=== PATIENT | male | born 1970 | race Caucasian/White ===

== ENCOUNTER 2017-04-01 10:34 | Inpatient (IN) | payer SELFPAY ==
[2017-04-01] VITALS (7 sets, daily range): BP systolic 100–146; BP diastolic 58–72; PULSE 55–81; RESP 16–20; TEMP 97.7–99; O2SAT 99–100
[~2017-04-01] VITALS: Ht 180.3 cm; Wt 76.6 kg
[2017-04-01] MEDS ORDERED: SODIUM CHLOR 0.9% 1000 ML INJ 1,000 ML IV ONE ×2 (10:54→11:24)
[2017-04-01] MEDS ORDERED: INSULIN HUMAN REGULAR 1,000 UNITS/10 ML VIAL IV PUSH ONE (11:00)
[2017-04-01] MEDS ORDERED: SODIUM CHLORIDE 0.9% FLUSH 10 ML FLUSH IVF PRN (11:00)
--- NOTE | 2017-04-01 11:03 | PD ---
HPI Chief Complaint: Syncope/Near-Syncope Time Seen by Provider: 10:54 Travel History International Travel<30 days: No Contact w/Intl Traveler<30days: No Traveled to known affect area: No History of Present Illness HPI This is a 46-year-old male who presents today with complaints of passing out yesterday. The patient states he was working in the hot heat when he had an episode where he passed out. He states he was weak and dizzy for roughly an hour and a half after passing out. He reports he had associated nausea and vomiting 2 episodes. He reports cramping in his lower extremities. The patient also has a history of diabetes and states that he has not been taking medication because he's posted controlling his diabetes with diet. He denies any fevers, chills. He did state that he felt warm yesterday when he passed out. He also reported a headache yesterday but denies one today. He reports mild dizziness still. He reports normal urine output and reports drinking a lot of water secondary to the heat. There are no other complaints at the time my examination. [facility] Past Medical History Diabetes: Yes Patient Takes Glucophage: No Medical other: Yes (DM) Tetanus Vaccination: > 5 Years Influenza Vaccination: No ?: Past Surgical History Surgical History: No Previous Surgery Social History Alcohol Use: No (PT DENIES ) Tobacco Use: No (PT DENIES ) Substance Use: No (PT DENIES ) Allergies-Medications (Allergen,Severity, Reaction): Coded Allergies: No Known Allergies (Unverified , 04/01/17) Reported Meds & Prescriptions Reported Meds & Active Scripts Active No Active Prescriptions or Reported Medications Review of Systems Except as stated in HPI: all other systems reviewed are Neg General / Constitutional: No: Fever, Chills Eyes: No: Diploplia, Blurred Vision HENT: Positive: Headaches (yesterday), Lightheadedness, No: Vertigo Cardiovascular: No: Chest Pain or Discomfort, Palpitations Respiratory: No: Cough, Shortness of Breath Gastrointestinal: Positive: Nausea, Vomiting (2), No: Diarrhea, Abdominal Pain Genitourinary: No: Dysuria, Decreased Urinary Output Musculoskeletal: Positive: Cramping, No: Weakness, Pain Neurologic: Positive: Dizziness, Syncope (yesterday), Headache (yesterday none today), No: Weakness, Incontinence, Seizures Physical Exam Narrative GENERAL: Well-developed well-nourished male in no acute respiratory distress. SKIN: Focused skin assessment warm/dry. HEAD: Atraumatic. Normocephalic. EYES:No scleral icterus. No injection or drainage. ENT: No nasal bleeding or discharge. Mucous membranes pink and moist. NECK: Trachea midline. Supple. CARDIOVASCULAR: Regular rate and rhythm. No murmur appreciated. RESPIRATORY: No accessory muscle use. Clear to auscultation. Breath sounds equal bilaterally. GASTROINTESTINAL: Abdomen soft, non-tender, nondistended. MUSCULOSKELETAL: No obvious deformities. No clubbing. No cyanosis. No edema. NEUROLOGICAL: Awake and alert. No obvious cranial nerve deficits. Motor grossly within normal limits. Normal speech. Data Data Last Documented VS Vital Signs Date Time Temp Pulse Resp B/P Pulse Ox O2 Delivery O2 Flow Rate FiO2 04/01/17 12:29 97.8 81 16 111/67 99 Room Air Orders Electrocardiogram (04/01/17 ) Complete Blood Count With Diff (04/01/17 10:54) Comprehensive Metabolic Panel (04/01/17 10:54) Magnesium (Mg) (04/01/17 10:54) Beta Hydroxybutyrate (Acetone) (04/01/17 10:54) Urinalysis - C+S If Indicated (04/01/17 10:54) Blood Glucose (04/01/17 10:54) Ecg Monitoring (04/01/17 10:54) Iv Access Insert/Monitor (04/01/17 10:54) Oximetry (04/01/17 10:54) NPO (04/01/17 10:54) Sodium Chlor 0.9% 1000 Ml Inj (Ns 1000 M (04/01/17 10:54) Sodium Chlor 0.9% 1000 Ml Inj (Ns 1000 M (04/01/17 11:24) Sodium Chloride 0.9% Flush (Ns Flush) (04/01/17 11:00) Insulin Human Regular Inj (Novolin R Inj (04/01/17 11:00) Diet 1800 Ada Cons Carb (04/01/17 Lunch) Vital Signs (Adult) ARTURO.Q4H (04/01/17 13:40) Hemoglobin (Hgb) A1c (04/01/17 13:40) Consult Roof Tiler (04/01/17 ) Sodium Chlor 0.9% 1000 Ml Inj (Ns 1000 M (04/01/17 13:45) Basic Metabolic Panel (Bmp) (04/02/17 06:00) Blood Glucose Goal (Criteria) (04/01/17 13:40) Hypoglycemia 70 Mg/Dl Or < (04/01/17 13:40) Notify Dr: Other (04/01/17 13:40) Dextrose 50% In Margo (Vial) Inj (D50w (Vi (04/01/17 13:45) Glucagon Inj (Glucagon Inj) (04/01/17 13:45) Insulin Aspart Supplemtl Scale (Novolog (04/01/17 16:00) Ondansetron Inj (Zofran Inj) (04/01/17 13:45) Admit Order (Ed Use Only) (04/01/17 13:32) Labs Laboratory Tests Test 04/01/17 04/01/17 11:00 11:12 White Blood Count 10.1 TH/MM3 Red Blood Count 4.79 MIL/MM3 Hemoglobin 14.8 GM/DL Hematocrit 43.6 % Mean Corpuscular Volume 90.9 FL Mean Corpuscular Hemoglobin 30.9 PG Mean Corpuscular Hemoglobin 34.0 % Concent Red Cell Distribution Width 12.8 % Platelet Count 248 TH/MM3 Mean Platelet Volume 7.5 FL Neutrophils (%) (Auto) 72.1 % Lymphocytes (%) (Auto) 20.0 % Monocytes (%) (Auto) 6.4 % Eosinophils (%) (Auto) 1.1 % Basophils (%) (Auto) 0.4 % Neutrophils # (Auto) 7.3 TH/MM3 Lymphocytes # (Auto) 2.0 TH/MM3 Monocytes # (Auto) 0.6 TH/MM3 Eosinophils # (Auto) 0.1 TH/MM3 Basophils # (Auto) 0.0 TH/MM3 CBC Comment DIFF FINAL Differential Comment Sodium Level 128 MEQ/L Potassium Level 3.8 MEQ/L Chloride Level 91 MEQ/L Carbon Dioxide Level 28.7 MEQ/L Anion Gap 8 MEQ/L Blood Urea Nitrogen 33 MG/DL Creatinine 1.59 MG/DL Estimat Glomerular Filtration 48 ML/MIN Rate Random Glucose 452 MG/DL Calcium Level 9.0 MG/DL Magnesium Level 2.2 MG/DL Total Bilirubin 0.9 MG/DL Aspartate Amino Transf 11 U/L (AST/SGOT) Alanine Aminotransferase 26 U/L (ALT/SGPT) Alkaline Phosphatase 122 U/L Total Protein 7.6 GM/DL Albumin 4.3 GM/DL B-Hydroxybutyrate 0.11 MMOL/L Urine Color YELLOW Urine Turbidity CLEAR Urine pH 5.5 Urine Specific [place] 1.032 Urine Protein TRACE mg/dL Urine Glucose (UA) 1000 mg/dL Urine Ketones NEG mg/dL Urine Occult Blood NEG Urine Nitrite NEG Urine Bilirubin NEG Urine Urobilinogen LESS THAN 2.0 MG/DL Urine Leukocyte Esterase NEG Urine RBC LESS THAN 1 /hpf Urine WBC 1 /hpf Urine Hyaline Casts 11 /lpf Urine Mucus FEW /lpf Microscopic Urinalysis Comment CULT NOT INDICATED MDM Medical Decision Making Medical Screen Exam Complete: Yes Emergency Medical Condition: Yes Differential Diagnosis DKA versus dehydration versus he takes testosterone versus metabolic arrangement Narrative Course 46-year-old male who presents after having a syncopal episode yesterday. The patient's was out working in the heat when he got lightheaded and passed out. He reports feeling dizzy and symptomatic for 1.5 hours after the episode. Patient also has a history of diabetes that he states is diet controlled. His blood sugar was noted to be 452 here today. He states he has not ever taken medications for his diabetes. He's been given 2 L of IVD fluid. He is also been given 8 units of Regular Insulin. His blood sugar after the fluids and insolent is 92. The patient's also noted to have a sodium of 128. His kidney function shows acute kidney injury as well. Given all of this, he will be admitted to the hospital for blood sugar control, I dehydration, sodium replacement. The case was discussed with , [facility] hospitalist who is agreed to the admission. Diagnosis Primary Impression: Uncontrolled diabetes mellitus Additional Impressions: Acute kidney injury Hyponatremia Scripts No Active Prescriptions or Reported Meds Luis Alberto Orosco MD Apr 01, 2017 11:03
[2017-04-01 11:18] LABS: AUTOMATED NEUTROPHIL # 7.3 TH/MM3 (1.8-7.7); BASOPHIL % 0.4 % (0.0-2.0); EOSINOPHIL # 0.1 TH/MM3 (0-0.4); EOSINOPHIL % 1.1 % (0.0-4.0); HEMATOCRIT 43.6 % (39.0-51.0); HEMO FLAGS DIFF FINAL; MEAN CELL VOLUME 90.9 FL (80.0-100.0); MEAN CORPUSCULAR HEMOGLOBIN 30.9 PG (27.0-34.0); MONO % 6.4 % (0.0-8.0); NEUT % 72.1 % (16.0-70.0); PLATELET COUNT 248 TH/MM3 (150-450); RED BLOOD COUNT 4.79 MIL/MM3 (4.50-5.90); RED CELL DISTRIBUTION WIDTH 12.8 % (11.6-17.2); WHITE BLOOD COUNT 10.1 TH/MM3 (4.0-11.0)
[2017-04-01 11:32] LABS: BLOOD, URINE NEG (NEG); GLUCOSE,URINE 1000 mg/dL (NEG); HYALINE CAST, URINE 11 /lpf (RARE); KETONE, URINE NEG (NEG); MUCUS URINE FEW /lpf (OCC); NITRITE,URINE NEG (NEG); PH, URINE 5.5 (5.0-8.5); URINE COLOR YELLOW (YELLW/STRAW)
[2017-04-01 11:33] LABS: COMMENT (UR) CULT NOT INDICATED; CULTURE IF INDICATED CULT NOT INDICATED
[2017-04-01 11:41] LABS: ALKALINE PHOSPHATASE 122 U/L (45-117); ALT (GPT) 26 U/L (12-78); ANION GAP 8 MEQ/L (5-15); AST (GOT) 11 U/L (15-37); BETA-HYDROXYBUTYRATE 0.11 MMOL/L (0.00-0.39); BICARBONATE 28.7 MEQ/L (21.0-32.0); BLOOD UREA NITROGEN 33 MG/DL (7-18); CHLORIDE 91 MEQ/L (98-107); GLOMERULAR FILTRATION RATE 48 ML/MIN (>89); MAGNESIUM 2.2 MG/DL (1.5-2.5); POTASSIUM 3.8 MEQ/L (3.5-5.1); SODIUM (NA) 128 MEQ/L (136-145); TOTAL BILIRUBIN ADULT 0.9 MG/DL (0.2-1.0)
--- NOTE | 2017-04-01 12:37 | EKG ---
Date Performed: 04/01/2017 Time Performed: 10:49:42 PTAGE: 46 years EKG: Sinus rhythm NORMAL ECG NO PREVIOUS TRACING DOCTOR: Tesfaye Viera Interpretating Date/Time 04/01/2017 12:34:55
[2017-04-01] MEDS ORDERED: ONDANSETRON HCL 4 MG/2 ML VIAL IV PUSH PRN (13:45)
[2017-04-01] MEDS ORDERED: GLUCAGON 1 MG/ML VIAL OTHER PRN (13:45)
[2017-04-01] MEDS ORDERED: DEXTROSE 50% IN WATER 50 ML VIAL(D50) IV PRN (13:45)
--- NOTE | 2017-04-01 13:51 | HHI.HP ---
[facility] Physician No Primary Care Physician Admission Diagnosis uncontrolled diabetes mellitus. Diagnoses: (1) Uncontrolled diabetes mellitus Diagnosis: Principal Chief Complaint: dizziness Travel History International Travel<30 Days: No Contact w/Intl Traveler <30 Da: No Traveled to Known Affected Are: No History of Present Illness patient is a 46 y/o male with history of diabetes- not on any medications, presented to ER after he passed out earlier. he says that he was working outside when he felt dizzy and then passed out.he denies any chest pain, sob, nausea, emesis. he says that he was diagnosed with diabetes six years ago but it 's diet-controlled. Review of Systems Constitutional: COMPLAINS OF: Dizziness, DENIES: Fever, Weight loss, Chills, Night Sweats Eyes: DENIES: Blurred vision, Diplopia, Vision loss, Double Vision Ears, nose, mouth, throat: DENIES: Tinnitus, Vertigo, Throat pain, Epistaxis Respiratory: DENIES: Apneas, Cough, Snoring, Wheezing, Hemoptysis, Sputum production, Shortness of breath Cardiovascular: DENIES: Chest pain, Palpitations, Syncope, Dyspnea on Exertion , PND, Lower Extremity Edema, Orthopnea, Claudication Gastrointestinal: DENIES: Abdominal pain, Black stools, Bloody stools, Constipation, Diarrhea, Nausea, Vomiting, Difficulty Swallowing, Anorexia Genitourinary: DENIES: Urinary frequency, Urgency, Hematuria, Dysuria Musculoskeletal: DENIES: Joint pain, Muscle aches, Stiffness, Joint Swelling Integumentary: DENIES: Rash Neurologic: DENIES: Abnormal gait, Headache, Localized weakness, Paresthesias, Seizures, Speech Problems, Tremor, Poor Balance Psychiatric: DENIES: Anxiety, Confusion, Mood changes, Depression, Hallucinations, Agitation, Suicidal Ideation, Homicidal Ideation, Delusions Past Family Social History Past Medical History diabetes mellitus. Past Surgical History none Reported Medications none Allergies: Coded Allergies: No Known Allergies (Unverified , 04/01/17) Active Ordered Medications Current Medications Sodium Chloride 1,000 ml @ 2,000 mls/hr Q30M ONCE IV Last administered on 04/01 11:05; Start 04/01/17 at 10:54; Stop 04/01/17 at 11:23; Status DC Sodium Chloride (NS 1000 ml Inj) 1,000 ml @ 2,000 mls/hr Q30M ONCE IV Last administered on 04/01/17 11:08; Start 04/01/17 at 11:24; Stop 04/01/17 at 11:53 ; Status DC Sodium Chloride (NS Flush) 2 ml UNSCH PRN IVF FLUSH AFTER USING IV ACCESS; Start 04/01/17 at 11:00 Insulin Human Regular (NovoLIN R INJ) 8 units ONCE ONCE IV PUSH Last administered on 04/01/17 11:07; Start 04/01/17 at 11:00; Stop 04/01/17 at 11:01 ; Status DC Social History no smoking or drinking. Physical Exam Vital Signs Vital Signs Date Time Temp Pulse Resp B/P Pulse Ox O2 Delivery O2 Flow Rate FiO2 04/01/17 12:29 97.8 81 16 111/67 99 Room Air 04/01/17 11:00 68 18 99 Room Air 04/01/17 11:00 18 99 Room Air 04/01/17 10:38 99.0 76 18 146/72 100 Room Air Physical Exam GENERAL: This is a well-nourished, well-developed patient, in no apparent distress. SKIN: No rashes, ecchymoses or lesions. Cool and dry. HEAD: Atraumatic. Normocephalic. No temporal or scalp tenderness. EYES: Pupils equal round and reactive. Extraocular motions intact. No scleral icterus. No injection or drainage. ENT: Nose without bleeding, purulent drainage or septal hematoma. Throat without erythema, tonsillar hypertrophy or exudate. Uvula midline. Airway patent. NECK: Trachea midline. No JVD or lymphadenopathy. Supple, nontender, no meningeal signs. CARDIOVASCULAR: Regular rate and rhythm without murmurs, gallops, or rubs. RESPIRATORY: Clear to auscultation. Breath sounds equal bilaterally. No wheezes , rales, or rhonchi. GASTROINTESTINAL: Abdomen soft, non-tender, nondistended. No hepato-splenomegaly , or palpable masses. No guarding. MUSCULOSKELETAL: Extremities without clubbing, cyanosis, or edema. No joint tenderness, effusion, or edema noted. No calf tenderness. Negative Homans sign bilaterally. NEUROLOGICAL: Awake and alert. Cranial nerves II through XII intact. Motor and sensory grossly within normal limits. Five out of 5 muscle strength in all muscle groups. Normal speech. Laboratory Laboratory Tests Test 04/01/17 04/01/17 11:00 11:12 White Blood Count 10.1 Red Blood Count 4.79 Hemoglobin 14.8 Hematocrit 43.6 Mean Corpuscular Volume 90.9 Mean Corpuscular Hemoglobin 30.9 Mean Corpuscular Hemoglobin 34.0 Concent Red Cell Distribution Width 12.8 Platelet Count 248 Mean Platelet Volume 7.5 Neutrophils (%) (Auto) 72.1 Lymphocytes (%) (Auto) 20.0 Monocytes (%) (Auto) 6.4 Eosinophils (%) (Auto) 1.1 Basophils (%) (Auto) 0.4 Neutrophils # (Auto) 7.3 Lymphocytes # (Auto) 2.0 Monocytes # (Auto) 0.6 Eosinophils # (Auto) 0.1 Basophils # (Auto) 0.0 CBC Comment DIFF FINAL Differential Comment Sodium Level 128 Potassium Level 3.8 Chloride Level 91 Carbon Dioxide Level 28.7 Anion Gap 8 Blood Urea Nitrogen 33 Creatinine 1.59 Estimat Glomerular Filtration 48 Rate Random Glucose 452 Calcium Level 9.0 Magnesium Level 2.2 Total Bilirubin 0.9 Aspartate Amino Transf 11 (AST/SGOT) Alanine Aminotransferase 26 (ALT/SGPT) Alkaline Phosphatase 122 Total Protein 7.6 Albumin 4.3 B-Hydroxybutyrate 0.11 Urine Color YELLOW Urine Turbidity CLEAR Urine pH 5.5 Urine Specific [place] 1.032 Urine Protein TRACE Urine Glucose (UA) 1000 Urine Ketones NEG Urine Occult Blood NEG Urine Nitrite NEG Urine Bilirubin NEG Urine Urobilinogen LESS THAN 2.0 Urine Leukocyte Esterase NEG Urine RBC LESS THAN 1 Urine WBC 1 Urine Hyaline Casts 11 Urine Mucus FEW Microscopic Urinalysis Comment CULT NOT INDICATED Result Diagram: 04/01/17 1100 04/01/17 1100 Imaging EKG; NSR with no acute ST-T changes. Assessment and Plan Assessment and Plan A/P - uncontrolled diabetes mellitus start on accu-check with SSI- check A1c and consult team lead- -acute kidney injury/ dehydration continue with IV fluid and monitor; BMP in am -hyponatremia due to hyperglycemia- continue IV fluid- BMP in am Discussed Condition With ER physician and the patient. Physician Certification 2 Midnight Certification Type: Admission for Inpatient Services Order for Inpatient Services The services are ordered in accordance with Medicare regulations or non- Medicare payer requirements, as applicable. In the case of services not specified as inpatient-only, they are appropriately provided as inpatient services in accordance with the 2-midnight benchmark. Estimated LOS (days): 2 days is the estimated time the patient will need to remain in the hospital, assuming treatment plan goals are met and no additional complications. Post-Hospital Plan: Home Problem Qualifiers (1) Uncontrolled diabetes mellitus: Ana Flanagan MD Apr 01, 2017 13:51
[2017-04-01] MEDS: SODIUM CHLOR 0.9% 1000 ML INJ 1,000 ML IV SCH ×2 (14:03→21:45)
[2017-04-01] MEDS: INSULIN ASPART SUPPLEMENTAL SCALE SQ SCH ×2 (15:55→21:00)
[2017-04-02 01:01] VITALS: BP 90/52; PULSE 58; RESP 20; TEMP 97.9; O2SAT 99
[2017-04-02 05:45] VITALS: BP 94/48; PULSE 61; RESP 20; TEMP 98.1; O2SAT 99
[2017-04-02] MEDS: SODIUM CHLOR 0.9% 1000 ML INJ 1,000 ML IV SCH ×2 (05:45→09:05)
[2017-04-02] MEDS: INSULIN ASPART SUPPLEMENTAL SCALE SQ SCH ×3 (06:16→15:47)
[2017-04-02 08:28] VITALS: BP 95/51; PULSE 59; RESP 18; TEMP 98.1; O2SAT 98
[2017-04-02 09:28] LABS: BICARBONATE 27.2 MEQ/L (21.0-32.0)
--- NOTE | 2017-04-02 11:32 | HHI.PR ---
Subjective Remarks resting comfortably with no distress. blood sugar overall improved. d/w the RN and no acute issues over night. Objective Vitals Vital Signs Date Time Temp Pulse Resp B/P Pulse Ox O2 Delivery O2 Flow Rate FiO2 04/02/17 08:28 98.1 59 18 95/51 98 04/02/17 05:45 98.1 61 20 94/48 99 04/02/17 01:01 97.9 58 20 90/52 99 04/01/17 21:04 98.0 55 20 102/59 99 04/01/17 16:34 98.3 60 18 105/59 100 04/01/17 15:55 97.8 76 16 100/59 99 04/01/17 14:03 97.7 59 16 100/58 99 Room Air 04/01/17 12:29 97.8 81 16 111/67 99 Room Air I/O 04/01/17 04/01/17 04/01/17 04/02/17 04/02/17 04/02/17 06:59 14:59 22:59 06:59 14:59 22:59 Intake Total 1022 ml Balance 1022 ml Intake IV Total 1022 ml # Voids 1 Result Diagram: 04/01/17 1100 04/02/17 0731 Objective Remarks GENERAL: This is a well-nourished, well-developed patient, in no apparent distress. CARDIOVASCULAR: Regular rate and regular rhythm without murmurs, gallops, or rubs. RESPIRATORY: Clear to auscultation. Breath sounds equal bilaterally. No wheezes , rales, or rhonchi. GASTROINTESTINAL: Abdomen soft, non-tender, nondistended. Normal, active bowel sounds MUSCULOSKELETAL: Extremities without clubbing, cyanosis, or edema. NEURO: Alert & Oriented x4 to person, place, time, situation. Moves all ext x4 Medications and IVs Current Medications Sodium Chloride 1,000 ml @ 2,000 mls/hr Q30M ONCE IV Last administered on 04/01 11:05; Start 04/01/17 at 10:54; Stop 04/01/17 at 11:23; Status DC Sodium Chloride (NS 1000 ml Inj) 1,000 ml @ 2,000 mls/hr Q30M ONCE IV Last administered on 04/01/17 11:08; Start 04/01/17 at 11:24; Stop 04/01/17 at 11:53 ; Status DC Sodium Chloride (NS Flush) 2 ml UNSCH PRN IVF FLUSH AFTER USING IV ACCESS; Start 04/01/17 at 11:00 Insulin Human Regular 8 units 8 units ONCE ONCE IV PUSH Last administered on 11:07; Start 04/01/17 at 11:00; Stop 04/01/17 at 11:01; Status DC Sodium Chloride (NS 1000 ml Inj) 1,000 ml @ 125 mls/hr Q8H IV Last administered on 04/02/17 09:05; Start 04/01/17 at 13:45 Dextrose (D50w (Vial) Inj) 50 ml UNSCH PRN IV HYPOGLYCEMIA-SEE COMMENTS; Start 04/01/17 at 13:45 Glucagon (Glucagon Inj) 1 mg UNSCH PRN OTHER HYPOGLYCEMIA-SEE COMMENTS; Start 04/01/17 at 13:45 Insulin Aspart (NovoLOG SUPPLEMENTAL SCALE) 1 ACHS SLIDING SCALE SQ Last administered on 04/02/17 06:16; Start 04/01/17 at 16:00 Ondansetron HCl (Zofran Inj) 4 mg Q8HR PRN IV PUSH NAUSEA; Start 04/01/17 at 13 :45 A/P Assessment and Plan A/P - uncontrolled diabetes mellitus- blood sugar has improved. started on accu-check with SSI- check A1c and consult family educator- -acute kidney injury/ dehydration- resolved. continue with IV fluid . -hyponatremia due to hyperglycemia- resolved. Discharge Planning possible dc home later this evening if stable. consult case management for dc needs. d/w the patient and RN. Ana Flanagan MD Apr 02, 2017 11:32
[2017-04-02] MEDS ORDERED: LEVEMIR SQ (11:35)
[2017-04-02] MEDS ORDERED: NOVOLOGP2 SQ (11:37)
--- NOTE | 2017-04-02 11:42 | HHI.DCPOC ---
Discharge Care Plan Your Health Problems Are: Fluctuating Blood Sugars Goals to Promote Your Health * To prevent worsening of your condition and complications * To maintain your health at the optimal level Directions to Meet Your Goals Take your medications as prescribed Follow your dietary instruction Follow activity as directed Keep your appointments as scheduled Take your immunizations and boosters as scheduled If your symptoms worsen call your PCP, if no PCP go to Urgent Care Center or Emergency Room Smoking is Dangerous to Your Health. Avoid second hand smoke Call the 24-hour hour crisis hotline for domestic abuse at Ana Flanagan MD Apr 02, 2017 11:42
[2017-04-02 12:30] VITALS: BP 94/55; PULSE 57; RESP 18; TEMP 97.8; O2SAT 99
[2017-04-02 15:25] LABS: HEMOGLOBIN A1a 1.2 %; HEMOGLOBIN F 1.8 %; HEMOGLOBIN LA1C 2.3 %; HEMOGLOBIN P3 4.4 %
[2017-04-02 16:40] VITALS: BP 104/60; PULSE 57; RESP 18; TEMP 97.8; O2SAT 99
== END 2017-04-02 18:54 | disposition home or self-care (01) | DRG 638 ==
LOC: NEPE 10:34 → NEDA 13:46 → N05A 16:05 → UNDODISIN 04-02 18:54
PROVIDERS: ADMIT Internal Medicine; ATTEND Internal Medicine
DX: E11.65 Type 2 diabetes mellitus with hyperglycemia (principal); E87.1 Hypo-osmolality and hyponatremia; N17.9 Acute kidney failure, unspecified; E86.0 Dehydration
CPT/HCPCS: 80048; 80053; 81001; 82010; 82948; 83036; 83735; 85025; 93005; 96361; 96374; J1815; J7030